=== PATIENT | male | born 1950 | race Caucasian/White ===

== ENCOUNTER 2020-05-18 02:08 | Outpatient (RCR) | payer MEDICARE, SELFPAY ==
[2020-04-27 08:27] LABS: ALT 18 U/L (16-63); AST 12 U/L (15-37); Albumin 3.5 g/dL (3.4-5.0); Alkaline Phosphatase 92 U/L (46-116); Anion Gap 8.8 mmol/L (3-11); BUN 14 mg/dL (7-18); Bilirubin, Total 0.5 mg/dL (0.2-1.0); CO2 26.2 mmol/L (21.0-32.0); CREATININE 0.84 mg/dL (0.70-1.30); Calcium 8.7 mg/dL (8.5-10.1); Chloride 104 mmol/L (98-107); Glucose 97 mg/dL (74-106); Sodium 139 mmol/L (136-145)
[2020-04-27] MEDS: Normal Saline Flush 10 ML SYR IVP (08:44)
[2020-04-27 08:59] LABS: Abs Immature Grans 0.04 10^3/uL (0.0-0.06); Absolute Basophil Count 0.05 10^3/uL (0.0-0.2); Absolute Eosinophil Count 0.23 10^3/uL (0.0-0.7); Absolute Lymphocyte Count 0.44 10^3/uL (1.2-3.4); Absolute Monocyte Count 0.25 10^3/uL (0.1-0.8); Absolute Neutrophil Count 3.93 10^3/uL (1.2-6.7); Eosinophils % 4.7; HGB 12.7 g/dL (13.5-17.5); Immature Grans % 0.8; Lymphocytes % 8.9; MCHC 33.4 % (32.0-36.0); MCV 89.8 fL (80-95); Monocytes % 5.1; Neutrophils % 79.5; Nucleated RBC 0 %; Platelet Count 222 10^3/uL (130-400); RBC 4.23 10^6/uL (4.36-5.78); RDW 12.2 % (11.8-14.1); RDW-SD 39.6 fL; WBC 4.94 10^3/uL (4.4-10.8)
[2020-05-04 08:08] LABS: Abs Immature Grans 0.02 10^3/uL (0.0-0.06); Absolute Basophil Count 0.03 10^3/uL (0.0-0.2); Absolute Eosinophil Count 0.17 10^3/uL (0.0-0.7); Absolute Lymphocyte Count 0.24 10^3/uL (1.2-3.4); Absolute Monocyte Count 0.16 10^3/uL (0.1-0.8); Absolute Neutrophil Count 2.79 10^3/uL (1.2-6.7); Basophils % 0.9; HCT 38.7 % (40.0-50.0); HGB 12.8 g/dL (13.5-17.5); Immature Grans % 0.6; MCH 30.3 pg (27.0-33.0); MCHC 33.1 % (32.0-36.0); MCV 91.5 fL (80-95); MPV 10.2 fL (8.0-11.0); Monocytes % 4.7; Neutrophils % 81.8; Nucleated RBC 0 %; Platelet Count 167 10^3/uL (130-400); RBC 4.23 10^6/uL (4.36-5.78); RDW 12.3 % (11.8-14.1); RDW-SD 40.3 fL; WBC 3.41 10^3/uL (4.4-10.8)
[2020-05-04 08:10] LABS: ALT 17 U/L (16-63); AST 13 U/L (15-37); Albumin 3.7 g/dL (3.4-5.0); Alkaline Phosphatase 86 U/L (46-116); Anion Gap 11.1 mmol/L (3-11); BUN 19 mg/dL (7-18); Bilirubin, Total 0.5 mg/dL (0.2-1.0); CO2 24.9 mmol/L (21.0-32.0); CREATININE 1.02 mg/dL (0.70-1.30); Calcium 8.7 mg/dL (8.5-10.1); Chloride 104 mmol/L (98-107); Glucose 156 mg/dL (74-106); Potassium 3.5 mmol/L (3.5-5.1); Sodium 140 mmol/L (136-145); Total Protein 7.1 g/dL (6.4-8.2)
[2020-05-04] MEDS: Normal Saline Flush 10 ML SYR IVP (08:12)
[2020-05-11] MEDS: Normal Saline Flush 10 ML SYR IVP (07:45)
[2020-05-11 08:14] LABS: Abs Immature Grans 0.01 10^3/uL (0.0-0.06); Absolute Basophil Count 0.03 10^3/uL (0.0-0.2); Absolute Eosinophil Count 0.09 10^3/uL (0.0-0.7); Absolute Monocyte Count 0.19 10^3/uL (0.1-0.8); Absolute Neutrophil Count 2.09 10^3/uL (1.2-6.7); Basophils % 1.1; Eosinophils % 3.4; HCT 37.2 % (40.0-50.0); HGB 12.4 g/dL (13.5-17.5); Immature Grans % 0.4; Lymphocytes % 7.7; MCH 30.3 pg (27.0-33.0); MCHC 33.3 % (32.0-36.0); MPV 10.2 fL (8.0-11.0); Monocytes % 7.3; Neutrophils % 80.1; Nucleated RBC 0 %; Platelet Count 136 10^3/uL (130-400); RBC 4.09 10^6/uL (4.36-5.78); RDW 12.6 % (11.8-14.1); RDW-SD 39.8 fL; WBC 2.61 10^3/uL (4.4-10.8)
[2020-05-11 08:30] LABS: ALT 18 U/L (16-63); AST 16 U/L (15-37); Albumin 3.4 g/dL (3.4-5.0); Alkaline Phosphatase 80 U/L (46-116); Anion Gap 8.5 mmol/L (3-11); BUN 14 mg/dL (7-18); Bilirubin, Total 0.5 mg/dL (0.2-1.0); CO2 25.5 mmol/L (21.0-32.0); CREATININE 0.91 mg/dL (0.70-1.30); Calcium 8.4 mg/dL (8.5-10.1); Chloride 106 mmol/L (98-107); Glucose 122 mg/dL (74-106); Magnesium 1.8 mg/dL (1.8-2.4); Sodium 140 mmol/L (136-145); Total Protein 6.8 g/dL (6.4-8.2)
[2020-05-18 07:59] LABS: Abs Immature Grans 0.01 10^3/uL (0.0-0.06); Absolute Basophil Count 0.03 10^3/uL (0.0-0.2); Absolute Eosinophil Count 0.08 10^3/uL (0.0-0.7); Absolute Lymphocyte Count 0.17 10^3/uL (1.2-3.4); Absolute Monocyte Count 0.12 10^3/uL (0.1-0.8); Absolute Neutrophil Count 1.77 10^3/uL (1.2-6.7); Basophils % 1.4; Eosinophils % 3.7; HCT 37.2 % (40.0-50.0); HGB 12.4 g/dL (13.5-17.5); Immature Grans % 0.5; Lymphocytes % 7.8; MCHC 33.3 % (32.0-36.0); MCV 90.1 fL (80-95); MPV 9.6 fL (8.0-11.0); Monocytes % 5.5; Neutrophils % 81.1; Nucleated RBC 0 %; Platelet Count 100 10^3/uL (130-400); RBC 4.13 10^6/uL (4.36-5.78); RDW 12.8 % (11.8-14.1); RDW-SD 39.8 fL; WBC 2.18 10^3/uL (4.4-10.8)
[2020-05-18 08:12] LABS: ALT 22 U/L (16-63); AST 14 U/L (15-37); Albumin 3.4 g/dL (3.4-5.0); Alkaline Phosphatase 82 U/L (46-116); Anion Gap 8.3 mmol/L (3-11); BUN 15 mg/dL (7-18); Bilirubin, Total 0.6 mg/dL (0.2-1.0); CO2 24.7 mmol/L (21.0-32.0); CREATININE 0.88 mg/dL (0.70-1.30); Calcium 8.6 mg/dL (8.5-10.1); Chloride 105 mmol/L (98-107); Glucose 124 mg/dL (74-106); Magnesium 1.7 mg/dL (1.8-2.4); Potassium 3.5 mmol/L (3.5-5.1); Sodium 138 mmol/L (136-145); Total Protein 6.8 g/dL (6.4-8.2)
[2020-05-18] MEDS: Normal Saline Flush 10 ML SYR IVP (08:15)
== END 2020-05-18 23:59 | disposition home or self-care (01) ==
LOC: INF 02:08
PROVIDERS: Visit Provider Internal Medicine Medical Oncology
DX: C16.0 Malignant neoplasm of cardia (principal)
CPT/HCPCS: 36415; 80053; 83735; 85025

== ENCOUNTER 2020-05-18 12:02 | Outpatient (CLI) | payer MEDICARE, SELFPAY ==
--- NOTE | 2020-05-18 | DI.US_ITS ---
EXAM: US LOWER EXTREMITY VENOUS RT CLINICAL HISTORY: EDEMA OF LOWER EXTREMITY, R60.0, NEW ONSET FOOT DROP. TECHNIQUE: Right lower extremity venous ultrasound performed using grayscale, color-flow, and spectr al Doppler analysis. COMPARISON: No exams were available for comparison FINDINGS: The right common femoral, femoral and popliteal veins demonstrate normal compressibility, augmentatio n, and color Doppler. The posterior tibial veins are patent. IMPRESSION: No evidence of DVT in the right lower extremity. DATA REPOSITORY:
== END 2020-05-18 12:22 ==
PROVIDERS: Visit Provider Nurse Practitioner Adult Health
DX: R60.0 Localized edema (principal); M21.371 Foot drop, right foot; C16.0 Malignant neoplasm of cardia
CPT/HCPCS: 36415; 80053; 83735; 85025; 93971

== ENCOUNTER 2020-05-25 02:02 | Outpatient (RCR) | payer MEDICARE, SELFPAY ==
[2020-05-25] MEDS: Normal Saline Flush 10 ML SYR IVP (07:50)
[2020-05-25 07:58] LABS: Abs Immature Grans 0.01 10^3/uL (0.0-0.06); Absolute Basophil Count 0.02 10^3/uL (0.0-0.2); Absolute Eosinophil Count 0.05 10^3/uL (0.0-0.7); Absolute Lymphocyte Count 0.13 10^3/uL (1.2-3.4); Absolute Monocyte Count 0.07 10^3/uL (0.1-0.8); Basophils % 1.8; Eosinophils % 4.5; HCT 35.2 % (40.0-50.0); HGB 11.9 g/dL (13.5-17.5); Immature Grans % 0.9; Lymphocytes % 11.8; MCH 30.4 pg (27.0-33.0); MCHC 33.8 % (32.0-36.0); MCV 89.8 fL (80-95); MPV 9.8 fL (8.0-11.0); Monocytes % 6.4; Neutrophils % 74.6; Nucleated RBC 0 %; Platelet Count 121 10^3/uL (130-400); RBC 3.92 10^6/uL (4.36-5.78); RDW 13.1 % (11.8-14.1); RDW-SD 40.9 fL
[2020-05-25 08:14] LABS: Absolute Neutrophil Count 0.82 10^3/uL (1.2-6.7); Diff Comment Diff Reviewed
[2020-05-25 08:15] LABS: RBC Morphology Normal
[2020-05-25 08:22] LABS: ALT 17 U/L (16-63); AST 13 U/L (15-37); Albumin 3.3 g/dL (3.4-5.0); Alkaline Phosphatase 73 U/L (46-116); Anion Gap 8.7 mmol/L (3-11); BUN 11 mg/dL (7-18); Bilirubin, Total 0.5 mg/dL (0.2-1.0); CO2 24.3 mmol/L (21.0-32.0); CREATININE 0.98 mg/dL (0.70-1.30); Calcium 8.5 mg/dL (8.5-10.1); Calculated LDL 76 mg/dL (<100); Chloride 103 mmol/L (98-107); Cholesterol 141 mg/dL (<200); Glucose 163 mg/dL (74-106); HDL Cholesterol 38 mg/dL (40-60); Potassium 3.3 mmol/L (3.5-5.1); Sodium 136 mmol/L (136-145); TSH 3.78 uIU/mL (0.36-3.74); Total Protein 6.5 g/dL (6.4-8.2); Triglyceride 138 mg/dL (<150)
[2020-05-25 08:51] LABS: Magnesium 1.6 mg/dL (1.8-2.4)
== END 2020-06-18 23:59 | disposition home or self-care (01) ==
LOC: INF 02:02
PROVIDERS: Visit Provider Internal Medicine Medical Oncology
DX: C16.0 Malignant neoplasm of cardia (principal); E78.5 Hyperlipidemia, unspecified; R13.10 Dysphagia, unspecified; E03.9 Hypothyroidism, unspecified
CPT/HCPCS: 36415; 80053; 80061; 83735; 84439; 84443; 85025

== ENCOUNTER 2021-02-08 01:54 | Outpatient (RCR) | payer MEDICARE, SELFPAY ==
[2021-02-08] MEDS: Normal Saline Flush 10 ML SYR IVP (09:25)
[2021-02-08 10:07] LABS: Abs Immature Grans 0.02 10^3/uL (0.0-0.06); Absolute Basophil Count 0.05 10^3/uL (0.0-0.2); Absolute Eosinophil Count 0.27 10^3/uL (0.0-0.7); Absolute Lymphocyte Count 0.51 10^3/uL (1.2-3.4); Absolute Monocyte Count 0.72 10^3/uL (0.1-0.8); Absolute Neutrophil Count 5.26 10^3/uL (1.2-6.7); Basophils % 0.7; HCT 34.7 % (40.0-50.0); Immature Grans % 0.3; Lymphocytes % 7.5; MCH 28.8 pg (27.0-33.0); MCHC 31.7 % (32.0-36.0); MCV 90.8 fL (80-95); Monocytes % 10.5; Nucleated RBC 0 %; Platelet Count 254 10^3/uL (130-400); RBC 3.82 10^6/uL (4.36-5.78); RDW 12.2 % (11.8-14.1); RDW-SD 40.6 fL; WBC 6.83 10^3/uL (4.4-10.8)
[2021-02-08 10:30] LABS: ALT 30 U/L (16-63); AST 35 U/L (15-37); Albumin 2.8 g/dL (3.4-5.0); Alkaline Phosphatase 326 U/L (46-116); Anion Gap 6.5 mmol/L (3-11); BUN 11 mg/dL (7-18); Bilirubin, Total 0.7 mg/dL (0.2-1.0); CO2 32.5 mmol/L (21.0-32.0); CREATININE 0.9 mg/dL (0.70-1.30); Calcium 8.7 mg/dL (8.5-10.1); Chloride 100 mmol/L (98-107); FREE T4 1.26 ng/dL (0.76-1.46); Glucose 106 mg/dL (74-106); Magnesium 2.1 mg/dL (1.8-2.4); Potassium 3.2 mmol/L (3.5-5.1); Sodium 139 mmol/L (136-145); TSH 9.92 uIU/mL (0.36-3.74); Total Protein 7.1 g/dL (6.4-8.2)
[2021-02-09 15:40] LABS: CEA 29.7 ng/mL (See Note)
== END 2021-02-16 23:59 | disposition home or self-care (01) ==
LOC: INF 01:54
PROVIDERS: Visit Provider Internal Medicine Medical Oncology
DX: C16.0 Malignant neoplasm of cardia (principal); Z79.899 Other long term (current) drug therapy; C78.7 Secondary malignant neoplasm of liver and intrahepatic bile duct; Z45.2 Encounter for adjustment and management of vascular access device
CPT/HCPCS: 36591; 80053; 82378; 83735; 84439; 84443; 85025

== ENCOUNTER 2021-03-01 03:28 | Outpatient (RCR) | payer MEDICARE, SELFPAY ==
[2021-03-01] MEDS: Normal Saline Flush 10 ML SYR IVP (09:44)
[2021-03-01 09:57] LABS: Abs Immature Grans 0.02 10^3/uL (0.0-0.06); Absolute Basophil Count 0.02 10^3/uL (0.0-0.2); Absolute Eosinophil Count 0.23 10^3/uL (0.0-0.7); Absolute Lymphocyte Count 0.46 10^3/uL (1.2-3.4); Absolute Monocyte Count 0.42 10^3/uL (0.1-0.8); Absolute Neutrophil Count 2.79 10^3/uL (1.2-6.7); Basophils % 0.5; Eosinophils % 5.8; HCT 31.7 % (40.0-50.0); Immature Grans % 0.5; Lymphocytes % 11.7; MCH 28.7 pg (27.0-33.0); MCHC 31.5 % (32.0-36.0); MCV 90.8 fL (80-95); MPV 9.6 fL (8.0-11.0); Monocytes % 10.7; Neutrophils % 70.8; Nucleated RBC 0 %; Platelet Count 126 10^3/uL (130-400); RBC 3.49 10^6/uL (4.36-5.78); RDW 14.7 % (11.8-14.1); RDW-SD 45.1 fL; WBC 3.94 10^3/uL (4.4-10.8)
[2021-03-01 10:19] LABS: ALT 27 U/L (16-63); AST 29 U/L (15-37); Albumin 2.7 g/dL (3.4-5.0); Alkaline Phosphatase 217 U/L (46-116); Anion Gap 7.8 mmol/L (3-11); BUN 14 mg/dL (7-18); Bilirubin, Total 0.6 mg/dL (0.2-1.0); CO2 29.2 mmol/L (21.0-32.0); Calcium 8.9 mg/dL (8.5-10.1); Chloride 102 mmol/L (98-107); FREE T4 1.68 ng/dL (0.76-1.46); Glucose 153 mg/dL (74-106); Sodium 139 mmol/L (136-145); TSH 0.38 uIU/mL (0.36-3.74); Total Protein 6.6 g/dL (6.4-8.2)
[2021-03-01 22:58] LABS: CEA 4.8 ng/mL (See Note)
== END 2021-03-18 23:59 | disposition home or self-care (01) ==
LOC: INF 03:28
PROVIDERS: Visit Provider Internal Medicine Medical Oncology
DX: C16.0 Malignant neoplasm of cardia (principal); C78.7 Secondary malignant neoplasm of liver and intrahepatic bile duct; Z79.899 Other long term (current) drug therapy; Z45.2 Encounter for adjustment and management of vascular access device
CPT/HCPCS: 36591; 80053; 82378; 83735; 84439; 84443; 85025

== ENCOUNTER 2021-04-12 00:52 | Outpatient (RCR) | payer MEDICARE, SELFPAY ==
[2021-03-22 09:38] LABS: Abs Immature Grans 0.03 10^3/uL (0.0-0.06); Absolute Basophil Count 0.04 10^3/uL (0.0-0.2); Absolute Eosinophil Count 0.19 10^3/uL (0.0-0.7); Absolute Monocyte Count 0.55 10^3/uL (0.1-0.8); Eosinophils % 4.6; HCT 34.9 % (40.0-50.0); HGB 11.1 g/dL (13.5-17.5); Immature Grans % 0.7; Lymphocytes % 14.5; MCHC 31.8 % (32.0-36.0); MCV 94.3 fL (80-95); Monocytes % 13.3; Neutrophils % 65.9; Nucleated RBC 0 %; Platelet Count 165 10^3/uL (130-400); RDW-SD 69.3 fL; WBC 4.15 10^3/uL (4.4-10.8)
[2021-03-22 09:39] LABS: Absolute Neutrophil Count 2.73 10^3/uL (1.2-6.7)
[2021-03-22] MEDS: Normal Saline Flush 10 ML SYR IVP (09:40)
[2021-03-22 09:53] LABS: Anisocytosis 2+; Diff Comment RBC Morph Reviewed
[2021-03-22 10:09] LABS: ALT 23 U/L (16-63); AST 30 U/L (15-37); Albumin 2.9 g/dL (3.4-5.0); Alkaline Phosphatase 175 U/L (46-116); Anion Gap 6.5 mmol/L (3-11); BUN 10 mg/dL (7-18); Bilirubin, Total 0.7 mg/dL (0.2-1.0); CO2 30.5 mmol/L (21.0-32.0); Calcium 8.9 mg/dL (8.5-10.1); Chloride 103 mmol/L (98-107); FREE T4 0.54 ng/dL (0.76-1.46); Glucose 142 mg/dL (74-106); Magnesium 2.1 mg/dL (1.8-2.4); Potassium 3.8 mmol/L (3.5-5.1); Sodium 140 mmol/L (136-145); Total Protein 6.9 g/dL (6.4-8.2)
[2021-03-22 10:33] LABS: TSH 77.23 uIU/mL (0.36-3.74)
[2021-03-22 18:04] LABS: CEA 5.4 ng/mL (See Note)
[2021-04-12 12:12] LABS: Abs Immature Grans 0.03 10^3/uL (0.0-0.06); Absolute Basophil Count 0.05 10^3/uL (0.0-0.2); Absolute Eosinophil Count 0.27 10^3/uL (0.0-0.7); Absolute Lymphocyte Count 0.44 10^3/uL (1.2-3.4); Absolute Monocyte Count 0.72 10^3/uL (0.1-0.8); Absolute Neutrophil Count 2.79 10^3/uL (1.2-6.7); Basophils % 1.2; Eosinophils % 6.3; HCT 32.8 % (40.0-50.0); HGB 10.3 g/dL (13.5-17.5); Immature Grans % 0.7; Lymphocytes % 10.2; MCH 30.9 pg (27.0-33.0); MCHC 31.4 % (32.0-36.0); MCV 98.5 fL (80-95); MPV 9.6 fL (8.0-11.0); Monocytes % 16.7; Neutrophils % 64.9; Nucleated RBC 0 %; Platelet Count 107 10^3/uL (130-400); RBC 3.33 10^6/uL (4.36-5.78); RDW 24.5 % (11.8-14.1); RDW-SD 85.3 fL
[2021-04-12] MEDS: Normal Saline Flush 10 ML SYR IVP (12:18)
[2021-04-12 12:27] LABS: Anisocytosis 2+; Diff Comment RBC Morph Reviewed; Hypochromasia 1+
[2021-04-12 12:33] LABS: ALT 18 U/L (16-63); AST 26 U/L (15-37); Alkaline Phosphatase 155 U/L (46-116); Anion Gap 7.1 mmol/L (3-11); BUN 13 mg/dL (7-18); Bilirubin, Total 0.7 mg/dL (0.2-1.0); CO2 30.9 mmol/L (21.0-32.0); CREATININE 0.9 mg/dL (0.70-1.30); Calcium 8.8 mg/dL (8.5-10.1); Chloride 103 mmol/L (98-107); FREE T4 0.75 ng/dL (0.76-1.46); Glucose 124 mg/dL (74-106); Potassium 3.4 mmol/L (3.5-5.1); Sodium 141 mmol/L (136-145); Total Protein 6.6 g/dL (6.4-8.2)
[2021-04-12 13:01] LABS: TSH 96.62 uIU/mL (0.36-3.74)
== END 2021-04-18 23:59 | disposition home or self-care (01) ==
LOC: INF 00:52
PROVIDERS: Visit Provider Internal Medicine Medical Oncology
DX: C78.7 Secondary malignant neoplasm of liver and intrahepatic bile duct (principal); C16.0 Malignant neoplasm of cardia; Z79.899 Other long term (current) drug therapy; Z45.2 Encounter for adjustment and management of vascular access device
CPT/HCPCS: 36591; 80053; 82378; 83735; 84439; 84443; 85025

== ENCOUNTER 2021-05-17 01:42 | Outpatient (RCR) | payer MEDICARE, SELFPAY ==
[2021-05-03] MEDS: Normal Saline Flush 10 ML SYR IVP (10:48)
[2021-05-03 11:05] LABS: Abs Immature Grans 0.02 10^3/uL (0.0-0.06); Absolute Basophil Count 0.03 10^3/uL (0.0-0.2); Absolute Monocyte Count 0.53 10^3/uL (0.1-0.8); Absolute Neutrophil Count 1.48 10^3/uL (1.2-6.7); Basophils % 1.1; Eosinophils % 7.2; HCT 32.1 % (40.0-50.0); HGB 10.6 g/dL (13.5-17.5); Immature Grans % 0.7; Lymphocytes % 18.1; MCH 33.7 pg (27.0-33.0); MCV 101.9 fL (80-95); MPV 9.4 fL (8.0-11.0); Monocytes % 19.2; Neutrophils % 53.7; Nucleated RBC 0 %; RBC 3.15 10^6/uL (4.36-5.78); RDW 25.4 % (11.8-14.1); RDW-SD 94.6 fL; WBC 2.76 10^3/uL (4.4-10.8)
[2021-05-03 11:13] LABS: Anisocytosis 2+; Diff Comment RBC Morph Reviewed; Macrocytosis 1+; Platelet Count 84 10^3/uL (130-400)
[2021-05-03 11:28] LABS: ALT 15 U/L (16-63); AST 22 U/L (15-37); Alkaline Phosphatase 158 U/L (46-116); Anion Gap 6.1 mmol/L (3-11); BUN 15 mg/dL (7-18); CO2 31.9 mmol/L (21.0-32.0); Calcium 9.1 mg/dL (8.5-10.1); Chloride 105 mmol/L (98-107); Glucose 123 mg/dL (74-106); Potassium 3.5 mmol/L (3.5-5.1); Sodium 143 mmol/L (136-145); Total Protein 6.8 g/dL (6.4-8.2)
[2021-05-03 11:53] LABS: TSH 81.68 uIU/mL (0.36-3.74)
[2021-05-10 10:10] LABS: Abs Immature Grans 0.02 10^3/uL (0.0-0.06); Absolute Basophil Count 0.04 10^3/uL (0.0-0.2); Absolute Eosinophil Count 0.19 10^3/uL (0.0-0.7); Absolute Lymphocyte Count 0.53 10^3/uL (1.2-3.4); Absolute Monocyte Count 0.47 10^3/uL (0.1-0.8); Absolute Neutrophil Count 2.26 10^3/uL (1.2-6.7); Basophils % 1.1; Eosinophils % 5.4; HCT 33.7 % (40.0-50.0); HGB 11.1 g/dL (13.5-17.5); Immature Grans % 0.6; Lymphocytes % 15.1; MCH 34.8 pg (27.0-33.0); MCHC 32.9 % (32.0-36.0); MCV 105.6 fL (80-95); MPV 11.2 fL (8.0-11.0); Monocytes % 13.4; Neutrophils % 64.4; Nucleated RBC 0 %; RBC 3.19 10^6/uL (4.36-5.78); RDW 22.7 % (11.8-14.1); WBC 3.51 10^3/uL (4.4-10.8)
[2021-05-10 10:32] LABS: ALT 17 U/L (16-63); AST 26 U/L (15-37); Albumin 2.9 g/dL (3.4-5.0); Alkaline Phosphatase 156 U/L (46-116); Anion Gap 9.2 mmol/L (3-11); BUN 13 mg/dL (7-18); Bilirubin, Total 0.9 mg/dL (0.2-1.0); CO2 26.8 mmol/L (21.0-32.0); CREATININE 1.1 mg/dL (0.70-1.30); Calcium 8.7 mg/dL (8.5-10.1); Chloride 104 mmol/L (98-107); FREE T4 0.96 ng/dL (0.76-1.46); Glucose 145 mg/dL (74-106); Potassium 3.5 mmol/L (3.5-5.1); Sodium 140 mmol/L (136-145); Total Protein 6.6 g/dL (6.4-8.2)
[2021-05-10 10:33] LABS: TSH 121.86 uIU/mL (0.36-3.74)
[2021-05-10 10:39] LABS: Anisocytosis 2+; Diff Comment Diff Reviewed; Macrocytosis 2+
[2021-05-10 10:40] LABS: Platelet Count 82 10^3/uL (130-400)
[2021-05-10] MEDS: Normal Saline Flush 10 ML SYR IVP (10:45)
[2021-05-17] MEDS: Normal Saline Flush 10 ML SYR IVP (08:21)
[2021-05-17 08:34] LABS: Abs Immature Grans 0.02 10^3/uL (0.0-0.06); Absolute Basophil Count 0.05 10^3/uL (0.0-0.2); Absolute Eosinophil Count 0.21 10^3/uL (0.0-0.7); Absolute Monocyte Count 0.54 10^3/uL (0.1-0.8); Absolute Neutrophil Count 2.77 10^3/uL (1.2-6.7); Basophils % 1.2; Eosinophils % 5.1; HGB 11.4 g/dL (13.5-17.5); Immature Grans % 0.5; Lymphocytes % 12.2; MCH 34.7 pg (27.0-33.0); MCHC 32.6 % (32.0-36.0); MCV 106.4 fL (80-95); MPV 10.1 fL (8.0-11.0); Monocytes % 13.2; Neutrophils % 67.8; Nucleated RBC 0 %; Platelet Count 103 10^3/uL (130-400); RBC 3.29 10^6/uL (4.36-5.78); RDW 19.2 % (11.8-14.1); RDW-SD 76.4 fL; Reticulocyte 2.8 % (0.5-2.4); WBC 4.09 10^3/uL (4.4-10.8)
[2021-05-17 09:01] LABS: ALT 14 U/L (16-63); AST 22 U/L (15-37); Albumin 2.9 g/dL (3.4-5.0); Alkaline Phosphatase 164 U/L (46-116); Anion Gap 6.1 mmol/L (3-11); BUN 11 mg/dL (7-18); Bilirubin, Total 1.2 mg/dL (0.2-1.0); CO2 30.9 mmol/L (21.0-32.0); Chloride 102 mmol/L (98-107); FREE T4 1.18 ng/dL (0.76-1.46); Glucose 114 mg/dL (74-106); Potassium 3.5 mmol/L (3.5-5.1); Sodium 139 mmol/L (136-145); Total Protein 6.9 g/dL (6.4-8.2)
[2021-05-17 09:34] LABS: TSH 96.42 uIU/mL (0.36-3.74)
[2021-05-17 10:24] LABS: Vitamin B12 433 pg/mL (193-986)
== END 2021-05-18 23:59 | disposition home or self-care (01) ==
LOC: INF 01:42
PROVIDERS: Visit Provider Internal Medicine Medical Oncology
DX: C16.0 Malignant neoplasm of cardia (principal); C78.7 Secondary malignant neoplasm of liver and intrahepatic bile duct; Z79.899 Other long term (current) drug therapy; Z45.2 Encounter for adjustment and management of vascular access device
CPT/HCPCS: 36591; 80053; 82607; 82746; 84439; 84443; 85025; 85045

== ENCOUNTER 2021-05-28 00:32 | Outpatient (CLI) | payer MEDICARE, SELFPAY ==
[2021-05-28] MEDS: Breeza Beverage 473 ML BTL PO ×2 (09:25→09:26)
[2021-05-28] MEDS: Omnipaque 350 MG/ML 50 ML BTL PO (09:25)
--- NOTE | 2021-05-28 11:00 | DI.CT_ITS ---
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 TECHNIQUE: Imaging Protocol: Axial computed tomography images with coronal and sagittal reformatted images were created and reviewed CONTRAST MATERIAL: Intravenous: Omnipaque 350 Contrast volume:100 ml Oral: Yes COMPARISON: Prior CT scans are from outside institution ([facility]) CT CT ABD/PELVIS W CONTRAST from 01/31/[address] CHEST W CONTRAST from 03/15/2021 FINDINGS: Submitted for interpretation Monday05/31/2021. CHEST: Distal tip of the Port-A-Cath is in the lower SVC. LUNGS: There are moderate-sized bilateral pleural effusions, right slightly larger than left. Pleura l effusions increased when compared to outside study of January 2021. In the right lung there is a suggestion of a nodular density in the sub apical aspect of the right up per lobe which is partially hidden by the pleural effusion, this finding measuring approximately 6 by 7 millimeters. It is partially obscured by the pleural fluid. There is volume loss in the basal se gments of the right lower lobe, more so than previous. Similar findings of volume loss seen in basal segments of the left lower lobe where there is also moderate sized left pleural effusion. There is no distinct left pulmonary nodule. There are no significant focal findings in trachea and mainstem bronchi. MEDIASTINUM: There is no hilar nor mediastinal adenopathy. Visualized thyroid unremarkable.Esophagus is not dilated. None CARDIAC: Heart size is normal. There is no pericardial effusion.Caliber thoracic aorta is upper norm al. There is an aberrant right subclavian artery noted. This comes off as the last branch off the a ortic arch and passes to the right side between the posterior aspect of the esophagus and anterior as pect of the vertebral body. No stenosis nor aneurysm in this vessel. OSSEOUS: No new significant osseous lesions.Multiple small peripherally sclerotic densities are noted in the thoracic vertebrae, unchanged. These may or may not be significant. ABDOMEN: There is a large amount of ascites. This has increased when compared to 01/31/2021 LIVER: There is a subcapsular lesion again noted in the right hepatic lobe measuring approximately 2 x 1.8 cm. However, other lesions in the liver are actually less evident on the present study. Liver again appears somewhat cirrhotic. The caudate lobe is not significantly enlarged. GALLBLADDER/BILIARY: Some a contracted . No obvious calcified gallstones. CBD is not dilated. PANCREAS: No evidence of pancreatic mass nor dilatation of the pancreatic duct. SPLEEN: Spleen is not enlarged. There are no intrasplenic lesions. There is central lucency within t he portal vein, either consistent with intraluminal nonobstructive thrombus or combination of enhance blood from the splenic vein, combined with unenhanced blood from the superior mesenteric vein. ADRENALS: There are no significant adrenal masses. KIDNEYS: Kidneys are only partially included in the field of view. There appears to be mild hydronep hrosis bilaterally. ABDOMINAL AORTA: No evidence of abdominal aortic aneurysm in the field of view of this study which is to the mid abdominal aorta only LYMPH NODES: There is no retroperitoneal nor paraaortic adenopathy. ABDOMINAL WALL: Within the field of view of this study there is no evidence of significant anterior a bdominal hernia. GI: There is no evidence of bowel obstruction. OSSEOUS: There are multiple nonexpansile round sclerotic densities in the vertebral bodies which prev iously evident PELVIS: Not scanned IMPRESSION: 1. In the chest there moderate-sized bilateral pleural effusions, right slightly larger than left. T hese pleural effusions have slightly further increased in size from the prior outside study. These pleural effusions are resulting in volume loss in the basal segments of both lower lobes. 2. Subtle suggestion of possible 7 millimeter nodule in the right upper lobe, this partially obscured by the right pleural effusion. No obvious nodules in the opposite-left lung. No obvious intrathora cic adenopathy. 3. Large amount of ascites which has increased from the prior study. 4. Hepatic lesion as above, however, there appear to be less liver lesions when compared to the prior CT scan of January 2021. 5. Central lucency within the portal vein noted, either intraluminal thrombus or admixture of both o pacified blood from the splenic vein and non-opacified blood from the superior mesenteric vein. If c linically indicated this could be further study with ultrasound examination of the portal vein to det ermine if there is truly clot therein. 6. Multiple small lucencies with sclerotic rims seen within the vertebral bodies. Not typical appea jorge a of metastatic disease but recommend whole body nuclear bone scan. 7. There appears to be mild bilateral hydronephrosis, difficult to assess on this study as the entir e kidneys are not included and this scan did not include the pelvis. RADIATION DOSE DELIVERED: 1,369.75mGy.cm Total DLP DATA REPOSITORY: All CT scans at this facility are submitted to the National Radiology Data Registry (NRDR) Dose Index Registry (DIR) with the [employer] (ACR). RADIATION OPTIMIZATION: All CT scans at this facility use at least one of these dose optimization te chniques: automated exposure control; mA and/or kV adjustment per patient size (includes targeted exa ms where dose is matched to clinical indication); or iterative reconstruction.
[2021-05-28] MEDS: Omnipaque 350 MG/ML 100 ML BTL IJ (11:32)
== END 2021-05-28 00:52 ==
PROVIDERS: Visit Provider Internal Medicine Medical Oncology
DX: C16.0 Malignant neoplasm of cardia (principal); C78.7 Secondary malignant neoplasm of liver and intrahepatic bile duct; J90 Pleural effusion, not elsewhere classified; R91.1 Solitary pulmonary nodule; K76.9 Liver disease, unspecified
CPT/HCPCS: 96523; 71260; 74160; J3490; Q9967

== ENCOUNTER 2021-06-03 02:15 | Outpatient (RCR) | payer MEDICARE, SELFPAY ==
[2021-05-28] MEDS: Heparin 500 UNITS/5 ML SYRINGE IV (09:16)
[2021-05-28] MEDS: Normal Saline Flush 10 ML SYR IVP (09:16)
[2021-06-03] MEDS: Normal Saline Flush 10 ML SYR IVP (11:56)
[2021-06-03 12:02] LABS: Abs Immature Grans 0.02 10^3/uL (0.0-0.06); Absolute Basophil Count 0.02 10^3/uL (0.0-0.2); Absolute Eosinophil Count 0.12 10^3/uL (0.0-0.7); Absolute Lymphocyte Count 0.53 10^3/uL (1.2-3.4); Absolute Monocyte Count 0.53 10^3/uL (0.1-0.8); Absolute Neutrophil Count 2.34 10^3/uL (1.2-6.7); Basophils % 0.6; Eosinophils % 3.4; HCT 33.9 % (40.0-50.0); HGB 11.2 g/dL (13.5-17.5); Immature Grans % 0.6; Lymphocytes % 14.9; MCH 35.6 pg (27.0-33.0); MCV 107.6 fL (80-95); MPV 10.1 fL (8.0-11.0); Monocytes % 14.9; Neutrophils % 65.6; Nucleated RBC 0 %; Platelet Count 130 10^3/uL (130-400); RBC 3.15 10^6/uL (4.36-5.78); RDW 16.5 % (11.8-14.1); RDW-SD 65.4 fL; WBC 3.56 10^3/uL (4.4-10.8)
[2021-06-03 12:23] LABS: ALT 15 U/L (16-63); AST 26 U/L (15-37); Albumin 2.7 g/dL (3.4-5.0); Alkaline Phosphatase 134 U/L (46-116); Anion Gap 5.2 mmol/L (3-11); BUN 11 mg/dL (7-18); Bilirubin, Total 0.7 mg/dL (0.2-1.0); CO2 30.8 mmol/L (21.0-32.0); Calcium 8.6 mg/dL (8.5-10.1); Chloride 103 mmol/L (98-107); FREE T4 1.27 ng/dL (0.76-1.46); Glucose 142 mg/dL (74-106); Magnesium 2.1 mg/dL (1.8-2.4); Sodium 139 mmol/L (136-145); TSH 62.04 uIU/mL (0.36-3.74); Total Protein 6.5 g/dL (6.4-8.2)
[2021-06-03 12:27] LABS: Potassium 2.8 mmol/L (3.5-5.1)
[2021-06-03 22:49] LABS: CEA 16.5 ng/mL (See Note)
== END 2021-06-18 23:59 | disposition home or self-care (01) ==
LOC: INF 02:15
PROVIDERS: Visit Provider Internal Medicine Medical Oncology
DX: C16.0 Malignant neoplasm of cardia (principal); C78.7 Secondary malignant neoplasm of liver and intrahepatic bile duct; Z79.899 Other long term (current) drug therapy; Z45.2 Encounter for adjustment and management of vascular access device
CPT/HCPCS: 36591; 80053; 96523; 82378; 83735; 84439; 84443; 85025

== ENCOUNTER 2021-06-03 12:17 | Emergency (ER) | payer MEDICARE, SELFPAY ==
[2021-06-03] VITALS (28 sets, daily range): BP systolic 103–150; BP diastolic 71–93; PULSE 65–76; RESP 6–18; TEMP 36.4; O2SAT 93–97
--- NOTE | 2021-06-03 12:15 | RT.EKG_ITS ---
APPROVED REPORT Exam: Resting ECG Reason for Exam: dizzy Patient Location: E HR:72 bpm ECG Measurements Heart Rate 72 AXIS AL 214 P -12 QRSd 86 QRS -28 QT [id number] T [id number] QTc 0 Conclusion Sinus rhythm...normal P axis, V-rate 60- 99 Borderline prolonged AL interval...AL >212, V-rate 50- 90 Low voltage, precordial leads...precordial leads <1.0mV Consider anterior infarct...Q >30mS in V2-V5
--- NOTE | 2021-06-03 12:38 | ED.GENADUL_ITS ---
Discharge Plan Disposition Patient Disposition: HOME Condition: Stable Discharge Details Clinical Impression: Dehydration, Hypokalemia Primary Care Provider: Lupillo Raya ED Provider: Antoine Fried Home Meds and New Rx's Prescriptions: Continued acetaminophen 500 mg capsule 500 mg PO Q6H PRNRF: 0 ascorbic acid-multivit,mins 18 1,000 mg tablet 1 tab PO DAILY RF: 0 capecitabine [Xeloda] 500 mg tablet 2,000 mg PO BID RF: 0 citalopram 20 mg tablet 20 mg PO DAILY RF: 0 levothyroxine 112 mcg tablet 112 mcg PO DAILY RF: 0 MagAlDiphenhyd/Lidocaine Suspension 5 ml PO .up to 8x/day PRNRF: 0 mirtazapine 7.5 mg tablet 7.5 mg PO QHS RF: 0 oxycodone-acetaminophen [Percocet] 5-325 mg tablet 1 tab PO Q4H PRNRF: 0 polyethylene glycol 3350 [Miralax] 17 gram/dose powder 17 g PO DAILY RF: 0 prochlorperazine maleate 10 mg tablet 10 mg PO Q6H PRNRF: 0 sucralfate 1 gram tablet 1 g PO QACHS PRNRF: 0 Discharge Instructions Instructions: Hypokalemia (ED) Additional Instructions: follow up with your primary care provider and oncologist within 1 week, you should have your potassium level rechecked as well if you feel more ill, have difficulty breathing or chest pain return to the emergency department Medical Decision Making 71 yo male who states he has liver cancer and gets chemotherapy comes in with feeling general weak and dehydrated. He states he has not been eating or drinking well because of lack of appetite. He went to the infusion room for lab draw and told them he has been feeling generally weak and when he stands feels lightheaded, no loc, no shortness of breath, no chest pain. Denies any abdominal pain as well. He has no focal deficits on exam. He is speaking clearly and does appear fatigued, no abdominal tenderness normal lung sounds, no leg swelling or calf tenderness. I suspect his symptoms are from dehydration secondary to not eating/drinking well due to his chemotherapy, will evaluate for anemia, electrolyte abnormalities and reassess after IV fluids pt stable and feels better after fluids, repeat K after oral supplementation imiproved to 3.1. Discussed with the patient and he feels well enough for d/c, advised to increase dietary potassium and follow up with his pcp and oncologist, return precautions given Differential Diagnosis Differential Diagnosis: dehydration, anemia, electrolyte abnormality Lab Data Lab results reviewed: Yes I reviewed the patient's lab results. ECG Data Attestation: I personally reviewed and interpreted this ECG (s) as follows: Prior ECG tracings: not available for review Interpretation: sinus rhythm, rate of 72, no acute st t wave ischemic findings HPI General Mode of arrival: wheelchair . Date/Time Provider Initiated Documentation: 06/03/21 12:29 . Limitations to Documentation: no limitations . Information obtained by: patient . History of Present Illness 71 year old M presents to the emergency department with the chief complaint of general weakness, Patient started experiencing this week(s) (2) and it has been constant. No relieving factors improve symptom(s), No exacerbating factors reported . Patient notes other (lack of appetite). Patient did receive the following treatments prior to arrival, none Related Data Home Medications Medication Instructions Recorded Confirmed MagAlDiphenhyd/Lidocaine Suspension 5 ml PO .up to 8x/day PRN 06/03/21 acetaminophen 500 mg capsule 500 mg PO Q6H PRN 06/03/21 ascorbic acid (vit C) 1,000 1 tab PO DAILY tab 06/03/21 mg-multivitamin with minerals no.18 tablet capecitabine 500 mg tablet 2,000 mg PO BID tab 06/03/21 citalopram 20 mg tablet 20 mg PO DAILY 06/03/21 levothyroxine 112 mcg tablet 112 mcg PO DAILY 06/03/21 mirtazapine 7.5 mg tablet 7.5 mg PO QHS 06/03/21 oxycodone-acetaminophen 5 mg-325 1 tab PO Q4H PRN 06/03/21 mg tablet polyethylene glycol 3350 17 17 g PO DAILY 06/03/21 gram/dose oral powder prochlorperazine maleate 10 mg 10 mg PO Q6H PRN 06/03/21 tablet sucralfate 1 gram tablet 1 g PO QACHS PRN 06/03/21 Allergies Allergy/AdvReac Type Severity Reaction Status Date / Time No Known Allergies Allergy Verified 06/03/21 12:24 General Stated Complaint: Dizzy/Sync BRIANNE: 2 Review of Systems All systems reviewed & are unremarkable except as noted in HPI and below Constitutional Constitutional: Denies chills and Denies fever(s) Cardiovascular Cardiovascular: Denies chest pain and Denies dyspnea Respiratory Respiratory: Denies cough and Denies dyspnea Gastrointestinal Gastrointestinal: Denies abdominal pain, Denies nausea and Denies vomiting Musculoskeletal Musculoskeletal: Denies joint swelling PFSH All Active Problems (Updated 06/03/21 @ 14:19 by Antoine Fried MD) Dehydration (Acute) Hypokalemia (Acute) Medical History (Updated 06/03/21 @ 14:19 by Antoine Fried MD) Constipation COPD (chronic obstructive pulmonary disease) Hyperlipidemia Hypothyroidism due to drugs Insomnia, unspecified Malignant neoplasm of cardio-esophageal junction Neuropathy Polymyalgia rheumatica Secondary malignant neoplasm of liver Family History (Updated 06/03/21 @ 10:24 by Chelsea Valdez RN) Mother Stroke Father Alcohol use disorder Cancer Throat Cancer Brother Diabetes Social History (Updated 06/03/21 @ 10:24 by Chelsea Valdez RN) Smoking/Tobacco Use Status: Former Tobacco Use Quit Date: 06/19/99 Smoking risk assessment performed?: Yes Alcohol Intake: former Year quit: 1991 Drug use: Never current occupation: retired from [employer], drives [employer] Other: has girlfriend Meaghan Do you feel safe at home: Yes Exam Const General: no acute distress Orientation: alert HENMT Head: normal to inspection Ears: external ears normal General nose exam: external nose normal Mouth: moist mucous membranes Eyes General: appearance normal, both eyes and all related structures Neck Neck: normal visual inspection Resp Effort & Inspection: normal respiratory effort and able to speak in complete sentences Cardio Rate: regular rate GI Palpation: soft and nontender Skin General skin exam: no rashes or lesions noted Neuro General: patient alert and patient oriented x3 Extrem General: normal to inspection Psych Mental Status: mental status grossly normal Course Vital Signs Vital signs: Vital Signs Temperature 36.4 C L 06/03/21 12:18 Pulse 75 06/03/21 12:18 Respiratory Rate 12 06/03/21 12:18 Blood Pressure 103/77 06/03/21 12:18 Pulse Oximetry 96 06/03/21 12:18 Temperature 36.4 C L 06/03/21 12:18 Temperature Source Temporal Artery Scan 06/03/21 12:18 Pulse 75 06/03/21 12:18 Respiratory Rate 12 06/03/21 12:18 Respiratory Effort Non-Labored 06/03/21 12:22 Blood Pressure 103/77 06/03/21 12:18 Blood Pressure Position Supine 06/03/21 12:18 Pulse Oximetry 96 06/03/21 12:18 Oxygen Delivery Method Room Air 06/03/21 12:18 Oxygen Flow Rate 0 06/03/21 12:18 Pain Level 0 06/03/21 12:18
[2021-06-03] MEDS: Normal Saline 1,000 ML 1000 ML IV (12:59)
[2021-06-03] MEDS: Potassium Chloride 10 MEQ CAPCR 80 MEQ PO (13:10)
[2021-06-03 14:48] LABS: BUN 9 mg/dL (7-18); CREATININE 0.8 mg/dL (0.70-1.30); Calcium 8.3 mg/dL (8.5-10.1); Chloride 105 mmol/L (98-107); Glucose 84 mg/dL (74-106); Potassium 3.1 mmol/L (3.5-5.1); Sodium 140 mmol/L (136-145)
[2021-06-03] MEDS: Heparin 500 UNITS/5 ML SYRINGE (15:15)
[2021-06-03] MEDS: Normal Saline Flush 10 ML SYR IVP (15:15)
== END 2021-06-03 15:20 | disposition home or self-care (01) ==
PROVIDERS: Emergency Provider Emergency Medicine; PCP Family Medicine
DX: E86.0 Dehydration (principal); E87.6 Hypokalemia; C22.8 Malignant neoplasm of liver, primary, unspecified as to type; R53.1 Weakness
CPT/HCPCS: 36591; 80048; 80053; 93005; 96360; 96361; 99284; 82378; 83735; 84439; 84443; 85025; 93010; 99283